=== PATIENT | female | born 1980 | race African-American/Black ===

== ENCOUNTER 2016-10-25 10:08 | Emergency (ER) | payer OTHER ==
[2016-10-25 10:29] VITALS: BP 137/84; PULSE 94; TEMP 98.1; BMI 30.4
[2016-10-25] MEDS ORDERED: IBUPROFEN 400 MG TABLET (FP) PO ONE ×2 (11:28→11:34)
--- NOTE | 2016-10-25 11:56 | PDOC ---
History of Present Illness - General Chief Complaint: Pain Stated Complaint: Right leg pain, chronic Time Seen by Provider: 10/25/16 11:00 History Source: Patient - History of Present Illness Occurred: reports: other Lower Extremity Pain Location: right: ankle Past History - Past Medical History Allergies/Adverse Reactions: Allergies Allergy/AdvReac Type Severity Reaction Status Date / Time No Known Allergies Allergy Verified 10/25/16 10:29 Home Medications: Ambulatory Orders Omeprazole [Prilosec (RX)] 40 mg PO DAILY 02/10/15 Hydroxyzine Pamoate [Vistaril -] 25 mg PO HS #30 capsule 02/23/15 Quetiapine Fumarate [Seroquel -] 25 mg PO HS #30 tablet 02/23/15 Venlafaxine HCl [Effexor -] 50 mg PO DAILY #30 tablet 02/23/15 Antipyrine-Benzocaine Ear Drop [Auralgan -] 1 drop OU TID 12/08/15 Oxycodone HCl/Acetaminophen [Oxycodone-Acetaminophen 5-325] 1 each PO BID PRN Anemia: No Asthma: No Cancer: No Cardiac Disorders: No CVA: No COPD: No CHF: No Dementia: No Diabetes: No GI Disorders: No Disorders: No HTN: No Hypercholesterolemia: No Kidney Stones: No Liver Disease: No Psychiatric Problems: Yes (bipolar) Suicide Attempt (Hx): No Seizures: No Thyroid Disease: No - Surgical History Abdominal Surgery: No Appendectomy: No Cardiac Surgery: No Cholecystectomy: No Lung Surgery: No Neurologic Surgery: No Orthopedic Surgery: Yes (right fibula fx 2012, left ear effusion, treated with antipyrine benzocaine) - Reproductive History PID: No - Immunization History Td Vaccination: (unknown) Immunization Up to Date: Yes - Psycho/Social/Smoking Cessation Hx Anxiety: No Suicidal Ideation: No Smoking Status: Yes Smoking History: Current every day smoker Years of Tobacco Use: 15 Have you smoked in the past 12 months: Yes Number of Cigarettes Smoked Daily: 5 Cigars Per Day: 0 Information on smoking cessation initiated: Yes 'Breaking Loose' booklet given: 10/25/16 Hx Alcohol Use: No Drug/Substance Use Hx: No Substance Use Type: Marijuana Hx Substance Use Treatment: Yes (completed this program in February 2015) Review of Systems - Review of Systems Constitutional: No: Chills, Fever Musculoskeletal: Yes: Joint Pain. No: Joint Swelling *Physical Exam - Vital Signs Last Vital Signs Temp Pulse Resp BP Pulse Ox 98.1 F 94 H 18 137/84 99 10/25/16 10:27 10/25/16 10:27 10/25/16 10:27 10/25/16 10:27 10/25/16 10:27 - Physical Exam General Appearance: Yes: Appropriately Dressed. No: Apparent Distress HEENT: positive: Normal Voice Neck: positive: Supple Respiratory/Chest: negative: Respiratory Distress Extremity: positive: Other (~1cm poorly healing scab to dorsum of L hand, no s/ o infxn) ED Treatment Course - RADIOLOGY Radiology Studies Ordered: Category Date Time Status ANKLE-RIGHT [RAD] Stat Radiology 10/25/16 11:28 Ordered - Medications Given in the ED: ED Medications Discontinued Medications Generic Name Dose Route Start Last Admin Trade Name Freq PRN Reason Stop Dose Admin Ibuprofen 800 mg 10/25/16 11:28 10/25/16 11:36 Motrin - PO 10/25/16 11:29 800 mg ONCE ONE Administration Medical Decision Making - Medical Decision Making 10/25/16 11:42 36 yo F, s/p R ankle surgery 4 years ago at OSH, here w/ pain to site x months. For unclear reasons has not followed up with her orthopedist and has not taken anything for pain. Pt also c/o painful scab to L hand that has been intermittent x months. No f/c Pt well appearing and stable w/ poorly healing scab to dorsum of L hand but no s/o infxn. Surgical scar to lateral malleolus of R ankle, no swelling or skin changes. Pain control in ED and XR of ankle to assess hardware 10/25/16 11:57 10/25/16 12:37 Hardware intact on x-ray with some mild DJD changes. Patient given copy of reports to follow-up with her orthopedic. To take [id number] Motrin as needed for pain 10/25/16 12:39 *DC/Admit/Observation/Transfer Diagnosis at time of Disposition: Ankle pain, right Qualifiers: Chronicity: acute Qualified Code(s): M25.571 - Pain in right ankle and joints of right foot - Discharge Dispostion Disposition: HOME Condition at time of disposition: Good - Patient Instructions Additional Instructions: Take motrin for pain and follow up with your orthopedics Follow-up with your PMD as well
== END 2016-10-25 12:40 | disposition home or self-care (01) ==
LOC: JERFT 10:08
DX: M25.571 Pain in right ankle and joints of right foot (principal); Z87.311 Personal history of (healed) other pathological fracture; Z98.890 Other specified postprocedural states; Z87.81 Personal history of (healed) traumatic fracture
CPT/HCPCS: 73610-TC-RT; 99281-25

== ENCOUNTER 2018-04-23 13:47 | Inpatient (IN) | payer OTHER ==
[2018-04-23 16:50] VITALS: BMI 28.8
--- NOTE | 2018-04-23 20:28 | HP ---
Admission ROS [facility] Chief Complaint: THC and PCP rehabilitation Allergies/Adverse Reactions: Allergies Allergy/AdvReac Type Severity Reaction Status Date / Time No Known Allergies Allergy Verified 10/25/16 10:29 History of Present Illness: 38 yo female with hx of nicotine, PCP, THC dependence is here seeking rehabilitation. Last rehab two years ago at [facility]. PMHX: GERD, Bipolar and Depression. Denies suicidal / homicidal ideation or hx of suicide attempts. Longest period of sobriety 13 months. Exam Limitations: No Limitations - Ebola screening Have you traveled outside of the country in the last 21 days: No Have you had contact with anyone from an Ebola affected area: No Do you have a fever: No - Review of Systems Constitutional: No Symptoms Reported EENT: reports: No Symptoms Reported Respiratory: reports: No Symptoms reported Cardiac: reports: No Symptoms Reported GI: reports: Indigestion : reports: No Symptoms Reported Musculoskeletal: reports: No Symptoms Reported Integumentary: reports: No Symptoms Reported Neuro: reports: No Symptoms reported Endocrine: reports: No Symptoms Reported Hematology: reports: No Symptoms Reported Psychiatric: reports: Orientated x3, Anxious Other Systems: Reviewed and Negative Patient History - Patient Medical History Hx Anemia: No Hx Asthma: No Hx Chronic Obstructive Pulmonary Disease (COPD): No Hx Cancer: No Hx Cardiac Disorders: No Hx Congestive Heart Failure: No Hx Hypertension: No Hx Hypercholesterolemia: No Hx Pacemaker: No HX Cerebrovascular Accident: No Hx Seizures: No Hx Dementia: No Hx Diabetes: No Hx Gastrointestinal Disorders: Yes (GERD ) Hx Liver Disease: No Hx Genitourinary Disorders: No Hx Sexually Transmitted Disorders: No Hx Renal Disease (ESRD): No Hx Thyroid Disease: No Hx Human Immunodeficiency Virus (HIV): No (last tested six montha ago neg results) Hx Hepatitis C: No (2014 negative) Hx Depression: Yes (Bipolar) Hx Suicide Attempt: No Hx Bipolar Disorder: Yes (bipolar depression no meds at this time ) Hx Schizophrenia: No - Patient Surgical History Past Surgical History: Yes Hx Neurologic Surgery: No Hx Cataract Extraction: No Hx Cardiac Surgery: No Hx Lung Surgery: No Hx Breast Surgery: No Hx Breast Biopsy: No Hx Abdominal Surgery: No Hx Appendectomy: No Hx Cholecystectomy: No Hx Genitourinary Surgery: No Hx Section: No Hx Orthopedic Surgery: Yes (right fibula fx 2011, left ear effusion, treated with antipyrine benzocaine) Hx Hysterectomy: No Anesthesia Reaction: No - PPD History Previous Implant?: No Documented Results: Negative w/proof Date: 02/12/15 Results: 0mm PPD to be Administered?: Yes - Reproductive History Patient is a Female of Child Bearing Age (11 -55 yrs old): Yes Last Menstrual Period: 04/22/18 Patient : No - Smoking Cessation Smoking history: Current every day smoker Have you smoked in the past 12 months: Yes Aproximately how many cigarettes per day: 5 Cigars Per Day: 0 Hx Chewing Tobacco Use: No Initiated information on smoking cessation: Yes 'Breaking Loose' booklet given: 04/23/18 - Substance & Tx. History Hx Alcohol Use: No Hx Substance Use: No (PCP ) Substance Use Type: Marijuana Hx Substance Use Treatment: Yes ([facility] two year ago ) - Substances Abused Marijuana/Hashish Route: Smoking Frequency: Daily Amount used: 3-4 blunts Age of first use: 16 Date of Last Use: 04/22/18 PCP Route: Smoking Frequency: Daily Amount used: 3-4 blunts Age of first use: 18 Date of Last Use: 04/22/18 Family Disease History - Family Disease History Family Disease History: Diabetes: Mother, Heart Disease: Grandparent, Other: Father (heroin dependence,) Admission Physical Exam S - Vital Signs Vital Signs: Vital Signs - 24 hr 04/23/18 16:46 Temperature 97.6 F Pulse Rate 87 Respiratory 19 Rate Blood Pressure 137/85 - Physical General Appearance: Yes: Nourished, Appropriately Dressed, Obese, Anxious HEENTM: Yes: EOMI, Hearing grossly Normal, Normal ENT Inspection, Normocephalic , Normal Voice, ROSALEE, Pharynx Normal Respiratory: Yes: Within Normal Limits Neck: Yes: Within Normal Limits Cardiology: Yes: Regular Rhythm, Regular Rate Abdominal: Yes: Normal Bowel Sounds, Non Tender, Soft, Protuberent Genitourinary: Yes: Within Normal Limits Back: Yes: Normal Inspection Musculoskeletal: Yes: full range of Motion, Gait Steady, Pelvis Stable Extremities: Yes: Normal Capillary Refill, Normal Inspection, Normal Range of Motion, Non-Tender Neurological: Yes: paper plate machine tender II-XII NML intact, Fully Oriented, Alert, Motor Strength 5/5, Depressed Affect Integumentary: Yes: Normal Color, Dry, Warm Lymphatic: Yes: Within Normal Limits - Diagnostic (1) Psychiatric disorder Current Visit: Yes Status: Suspected (2) GERD (gastroesophageal reflux disease) Current Visit: No Status: Chronic Qualifiers: Esophagitis presence: without esophagitis Qualified Code(s): K21.9 - Gastro -esophageal reflux disease without esophagitis (3) Nicotine dependence Current Visit: Yes Status: Chronic Qualifiers: Nicotine product type: cigarettes (4) PCP dependence Current Visit: Yes Status: Chronic BHS Breath Alcohol Content Breath Alcohol Content: 0 Urine Pregancy Test - Result Urine Test Results: Negative- NO Line Present Urine Drug Screen - Results Drug Screen Negative: No Urine Drug Screen Results: THC-Marijuana Inpatient Rehab Admission - Initial Determination Are CD services needed?: Yes Free of communicable disease: Yes Not in need of hospitalization: Yes - Rehab Admission Criteria Previous failed treatment: Yes Poor recovery environment: Yes Comorbidities: Yes Lacks judgement: Yes Patient is meeting Inpatient Rehab admission criteria:: Yes
[2018-04-23] MEDS ORDERED: ACETAMINOPHEN 325 MG TABLET (FP) PO PRN (20:30)
[2018-04-23] MEDS ORDERED: MAG HYDROX/AL HYDROX/SIMETH 30 ML UNIT-DOSE CUP PO PRN (20:30)
[2018-04-23] MEDS ORDERED: MENTHOL/PHENOL 1 EACH UD MM PRN (20:30)
[2018-04-23] MEDS ORDERED: guaiFENesin/D-METHORPHAN HB 10 ML UNIT-DOSE CUPS PO PRN (20:30)
[2018-04-23] MEDS ORDERED: P-EPHED 60MG/TRIPROLIDI 2.5MG TABLET PO PRN (20:30)
[2018-04-23] MEDS ORDERED: LOPERAMIDE HCL 2 MG CAPSULE PO PRN (20:30)
[2018-04-23] MEDS ORDERED: MAGNESIUM HYDROX 2400MG/30ML ORAL SUSPENSION 30 ML CUP PO PRN (20:30)
[2018-04-23] MEDS ORDERED: IBUPROFEN 400 MG TABLET (FP) PO PRN (20:30)
[2018-04-23] MEDS ORDERED: hydrOXYzine PAMOATE 50 MG CAPSULE (FP) PO PRN (20:30)
[2018-04-23] MEDS ORDERED: MAGNESIUM CITRATE 300 ML BOTTLE PO PRN (20:30)
[2018-04-23] MEDS ORDERED: TUBERCULIN PPD 5 TU/0.1ML VIAL ID ONE (21:57)
[2018-04-23] MEDS ORDERED: MELATONIN 5 MG TABLETS PO PRN (22:00)
[2018-04-23] MEDS: PANTOPRAZOLE 20 MG TABLET (FP) PO SCH (22:39)
[2018-04-23] MEDS: diphenhydrAMINE HCL 50 MG CAPSULE PO SCH (22:39)
[2018-04-23] MEDS: THIAMINE HCL 100 MG TABLET (FP) PO SCH (22:50)
[2018-04-24 00:09] LABS: URINE APPEARANCE SLCLOUDY; URINE BILIRUBIN NEGATIVE (<2.0 mg/dL); URINE COLOR YELLOW; URINE GLUCOSE (UA) NEGATIVE (NEGATIVE); URINE KETONE TRACE (NEGATIVE); URINE LEUK ESTERASE NEGATIVE (NEGATIVE); URINE NITRITE NEGATIVE (NEGATIVE); URINE UROBILINOGEN NEGATIVE mg/dL (0.2-1.0)
[2018-04-24 00:30] LABS: URINE PROTEIN 2+ (NEGATIVE)
[2018-04-24 00:58] LABS: EPI CELLS FEW /HPF (FEW); URINE BACTERIA RARE /hpf (NONE SEEN); URINE HYALINE CAST 3 /lpf; URINE MUCUS FEW
[2018-04-24] MEDS: PRENATAL VITAMINS W/ FOLIC ACID TABLET (FP) PO SCH (09:00)
[2018-04-24] MEDS: PANTOPRAZOLE 20 MG TABLET (FP) PO SCH ×2 (09:00→21:25)
[2018-04-24 14:52] LABS: HEMATOCRIT 32.3 % (32.4-45.2); HEMOGLOBIN 10.9 GM/dL (10.7-15.3); MCHC 33.6 g/dl (32.0-36.0); MEAN CELL VOLUME 83.2 fl (80-96); MEAN PLT VOLUME 8.9 fl (7.5-11.1); PLATELET COUNT 317 K/MM3 (134-434); RBC 3.88 M/mm3 (3.60-5.2); RDW 15.8 % (11.6-15.6)
[2018-04-24 15:07] LABS: CHLORIDE 106 mmol/L (98-107); POTASSIUM 3.6 mmol/L (3.5-5.1); SODIUM 143 mmol/L (136-145)
[2018-04-24 15:34] LABS: ALBUMIN 3.4 g/dl (3.4-5.0); ALK PHOS 56 U/L (45-117); ANION GAP 11 MMOL/L (8-16); BILIRUBIN,TOTAL 0.4 mg/dL (0.2-1.0); BLOOD UREA NITROGEN 12 mg/dL (7-18); CALCIUM 8.7 mg/dL (8.5-10.1); CO2 26 mmol/L (21-32); CREATININE 0.7 mg/dL (0.55-1.3); GLUCOSE,RANDOM 96 mg/dL (74-106); SGOT/AST 10 U/L (15-37); SGPT/ALT 12 U/L (13-61); TOT PROT 6.6 g/dl (6.4-8.2)
--- NOTE | 2018-04-24 15:41 | EKG ---
Test Reason : Blood Pressure : / mmHG Vent. Rate : 055 BPM Atrial Rate : 055 BPM P-R Int : 156 ms QRS Dur : 096 ms QT Int : 460 ms P-R-T Axes : 040 034 004 degrees QTc Int : 440 ms SINUS BRADYCARDIA OTHERWISE NORMAL ECG NO PREVIOUS ECGS AVAILABLE Confirmed by JAZMIN MOSELEY MD ([id number]) on 04/24/2018 3:41:12 PM Referred By: Confirmed By:JAZMIN MOSELEY MD
[2018-04-24] MEDS ORDERED: PT OWN MED DRAWER 7, Y5N ONE (21:14)
[2018-04-24] MEDS: THIAMINE HCL 100 MG TABLET (FP) PO SCH (21:25)
[2018-04-24] MEDS: diphenhydrAMINE HCL 50 MG CAPSULE PO SCH (21:25)
[2018-04-25 06:42] VITALS: BP 125/80; PULSE 81; TEMP 98.1
--- NOTE | 2018-04-25 09:13 | HP ---
Psychiatrist Admission - Data Date of interview: 04/25/18 Admission source: [facility] Identifying data: This is the third admission to [address] [place] [address] rehabilitation for this 38 years old AA single homosexual female ,residing in residential,supported by PA. Medical History: H/O Anemia,GERD,H/o Fibula fracture. Psychiatric History: patient reports first contact with psychiatrist a few years ago while being in outpatient Drug rehabilitation treatment in [facility].patient addressed depression,mood instability,anxiety ,drug use.Shew was dx with Bipolar disorder and placed on Seroquel 100 mg po hs with good response. Patient was also dx with Pesronality disorder.She reports poor compliance with treatment,not on psychotropic medications,no current OPD care. patient is not willing to start medications at thei time. Physical/Sexual Abuse/Trauma History: not willing to discuss Vital Signs: Vital Signs - 24 hr 04/25/18 04/25/18 04/25/18 00:30 03:30 06:41 Temperature 98.1 F Pulse Rate 81 Respiratory 18 18 18 Rate Blood Pressure 125/80 Allergies/Adverse Reactions: Allergies Allergy/AdvReac Type Severity Reaction Status Date / Time No Known Allergies Allergy Verified 10/25/16 10:29 Concur with the findings of this exam: Yes - Substance Abuse/Tx History Hx Alcohol Use: No Hx Substance Use: Yes (marijuana since 15 yo,4 blunts daily,PCP since 16 yo,4 lunts daily) Substance Use Type: Marijuana Hx Substance Use Treatment: Yes (left this program AMA last year) Mental Status Exam - Mental Status Exam Alert and Oriented to: Time, Place, Person Cognitive Function: Grossly Intact Patient Appearance: Unkempt Mood: Hostile, Irritable Affect: Mood Congruent, Labile Patient Behavior: Restless, Impulsive, Resitive to Care Speech Pattern: Clear Voice Loudness: Normal Thought Process: Goal Oriented Thought Disorder: Not Present Hallucinations: Denies Suicidal Ideation: Denies Homicidal Ideation: Denies Insight/Judgement: Poor Sleep: Fair Appetite: Good Muscle strength/Tone: Normal Gait/Station: Normal Psychiatric Findings - Problem List ([place] 1, 2,3) (1) Nicotine dependence Current Visit: Yes Status: Chronic Qualifiers: Nicotine product type: cigarettes (2) PCP dependence Current Visit: Yes Status: Chronic (3) Bipolar II disorder in partial or unspecified remission Current Visit: Yes Status: Chronic (4) Cannabis dependence Current Visit: Yes Status: Chronic (5) Cluster B personality disorder Current Visit: Yes Status: Chronic - Initial Treatment Plan Initial Treatment Plan: patient is not willing to stay in treatment,no motivations,hostile,suspicious,refusing to give any specific reasoning why she decided to sign out.
[2018-04-25] MEDS: PRENATAL VITAMINS W/ FOLIC ACID TABLET (FP) PO SCH (10:44)
[2018-04-25] MEDS: PANTOPRAZOLE 20 MG TABLET (FP) PO SCH (10:44)
== END 2018-04-25 13:18 | disposition left against medical advice (07) | DRG 770 ==
LOC: YASAS 13:47 → Y3E 16:45
PROVIDERS: ADMIT Psychiatry & Neurology Psychiatry; ATTEND Psychiatry & Neurology Psychiatry
PROC: HZ42ZZZ Group Counseling for Substance Abuse Treatment, Cognitive-Behavioral (ICD-10-PCS; principal; 2018-04-23)
DX: F12.20 Cannabis dependence, uncomplicated (principal); F16.20 Hallucinogen dependence, uncomplicated; F17.210 Nicotine dependence, cigarettes, uncomplicated; F31.81 Bipolar II disorder; F60.9 Personality disorder, unspecified; K21.9 Gastro-esophageal reflux disease without esophagitis
CPT/HCPCS: 36415; 80053; 81003; 81015; 85027; 86593; 93005; 93010

== ENCOUNTER 2018-11-11 10:01 | Emergency (ER) | payer OTHER ==
[2018-11-11 10:14] VITALS: BP 139/79; PULSE 90; TEMP 97.9; BMI 63.6
== END 2018-11-11 11:01 | disposition left against medical advice (07) ==
LOC: JER 10:01
DX: Z53.21 Procedure and treatment not carried out due to patient leaving prior to being seen by health care provider (principal)
CPT/HCPCS: 99281-25

== ENCOUNTER 2019-06-01 10:20 | Inpatient (IN) | payer OTHER ==
[2019-06-01 10:36] VITALS: BMI 29.6
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
[2019-06-01] MEDS ORDERED: MENTHOL/PHENOL 1 EACH UD MM PRN (11:40)
[2019-06-01] MEDS ORDERED: IBUPROFEN 400 MG TABLET (FP) PO PRN (11:40)
[2019-06-01] MEDS ORDERED: LOPERAMIDE HCL 2 MG CAPSULE PO PRN (11:40)
[2019-06-01] MEDS ORDERED: MAGNESIUM CITRATE 300 ML BOTTLE PO PRN (11:40)
[2019-06-01] MEDS ORDERED: ACETAMINOPHEN 325 MG TABLET (FP) PO PRN (11:40)
[2019-06-01] MEDS ORDERED: guaiFENesin 200 MG/10 ML 10 ML UNIT-DOSE CUPS PO PRN (11:40)
[2019-06-01] MEDS ORDERED: MAG HYDROX/AL HYDROX/SIMETH 30 ML UNIT-DOSE CUP PO PRN (11:40)
[2019-06-01] MEDS ORDERED: MAGNESIUM HYDROX 2400MG/30ML ORAL SUSPENSION 30 ML CUP PO PRN (11:40)
[2019-06-01] MEDS ORDERED: P-EPHED 60MG/TRIPROLIDI 2.5MG TABLET PO PRN (11:40)
[2019-06-01 14:04] LABS: HEMATOCRIT 34.8 % (32.4-45.2); HEMOGLOBIN 11.4 GM/dL (10.7-15.3); MCH 27.9 pg (25.7-33.7); MCHC 32.8 g/dl (32.0-36.0); MEAN CELL VOLUME 84.9 fl (80-96); MEAN PLT VOLUME 8.7 fl (7.5-11.1); PLATELET COUNT 346 K/MM3 (134-434); RBC 4.09 M/mm3 (3.60-5.2); RDW 13.7 % (11.6-15.6); WHITE BLOOD COUNT 3.2 K/mm3 (4.0-10.0)
[2019-06-01 14:15] LABS: ALBUMIN 4.2 g/dl (3.4-5.0); BILIRUBIN,TOTAL 0.9 mg/dL (0.2-1); BLOOD UREA NITROGEN 11.7 mg/dL (7-18); CALCIUM 8.7 mg/dL (8.5-10.1); CREATININE 0.9 mg/dL (0.55-1.3); POTASSIUM 3.5 mmol/L (3.5-5.1); TOT PROT 8.1 g/dl (6.4-8.2)
[2019-06-01] MEDS: THIAMINE HCL 100 MG TABLET (FP) PO SCH (21:32)
[2019-06-02] MEDS: PRENATAL VITAMINS W/ FOLIC ACID TABLET (FP) PO SCH (10:28)
[2019-06-02 12:14] LABS: URINE APPEARANCE CLEAR; URINE BILIRUBIN NEGATIVE (NEGATIVE); URINE COLOR YELLOW; URINE GLUCOSE (UA) NEGATIVE (NEGATIVE); URINE KETONE NEGATIVE (NEGATIVE); URINE LEUK ESTERASE NEGATIVE (NEGATIVE); URINE NITRITE NEGATIVE (NEGATIVE); URINE PROTEIN NEGATIVE (NEGATIVE); URINE UROBILINOGEN 0.2 mg/dL (0.2-1.0)
[2019-06-02] MEDS: THIAMINE HCL 100 MG TABLET (FP) PO SCH (22:50)
[2019-06-03] MEDS: PRENATAL VITAMINS W/ FOLIC ACID TABLET (FP) PO SCH (10:25)
[2019-06-03] MEDS: THIAMINE HCL 100 MG TABLET (FP) PO SCH (21:54)
[2019-06-04] MEDS: PRENATAL VITAMINS W/ FOLIC ACID TABLET (FP) PO SCH (10:51)
[2019-06-04] MEDS: THIAMINE HCL 100 MG TABLET (FP) PO SCH (22:10)
[2019-06-05] MEDS: PRENATAL VITAMINS W/ FOLIC ACID TABLET (FP) PO SCH (10:09)
[2019-06-05] MEDS ORDERED: COLLOIDAL OATMEAL 1 BAR EACH TP PRN (15:19)
[2019-06-05] MEDS: THIAMINE HCL 100 MG TABLET (FP) PO SCH (22:47)
[2019-06-06] MEDS: PRENATAL VITAMINS W/ FOLIC ACID TABLET (FP) PO SCH (10:45)
[2019-06-06] MEDS: THIAMINE HCL 100 MG TABLET (FP) PO SCH (21:29)
[2019-06-07] MEDS: PRENATAL VITAMINS W/ FOLIC ACID TABLET (FP) PO SCH (10:26)
[2019-06-07] MEDS: THIAMINE HCL 100 MG TABLET (FP) PO SCH (22:13)
[2019-06-08] MEDS: PRENATAL VITAMINS W/ FOLIC ACID TABLET (FP) PO SCH (10:29)
[2019-06-08] MEDS: PANTOPRAZOLE 20 MG TABLET (FP) PO SCH (12:50)
[2019-06-08] MEDS: THIAMINE HCL 100 MG TABLET (FP) PO SCH (21:42)
[2019-06-09] MEDS: PRENATAL VITAMINS W/ FOLIC ACID TABLET (FP) PO SCH (09:56)
[2019-06-09] MEDS: PANTOPRAZOLE 20 MG TABLET (FP) PO SCH (09:56)
[2019-06-09] MEDS: THIAMINE HCL 100 MG TABLET (FP) PO SCH (22:03)
[2019-06-10] MEDS: PRENATAL VITAMINS W/ FOLIC ACID TABLET (FP) PO SCH (10:22)
[2019-06-10] MEDS: PANTOPRAZOLE 20 MG TABLET (FP) PO SCH (10:22)
[2019-06-10] MEDS: THIAMINE HCL 100 MG TABLET (FP) PO SCH (22:16)
[2019-06-10] MEDS ORDERED: PT OWN MED DRAWER 7, Y5N ONE (22:19)
[2019-06-10] MEDS: SODIUM CHLORIDE NASAL SPRAY 44 ML BOTTLE NS PRN (22:19)
[2019-06-10] MEDS: diphenhydrAMINE HCL 25 MG CAPSULE (FP) PO PRN (22:19)
[2019-06-10] MEDS: MELATONIN 5 MG TABLETS PO PRN (22:21)
[2019-06-11] MEDS ORDERED: PANTOPRAZOLE 20 MG TABLET (FP) PO SCH (06:00)
[2019-06-11] MEDS: SODIUM CHLORIDE NASAL SPRAY 44 ML BOTTLE NS PRN (10:37)
[2019-06-11] MEDS: PRENATAL VITAMINS W/ FOLIC ACID TABLET (FP) PO SCH (10:38)
[2019-06-11] MEDS: diphenhydrAMINE HCL 25 MG CAPSULE (FP) PO PRN ×2 (10:39→21:01)
--- NOTE | 2019-06-11 13:47 | PN ---
BHS Progress Note (SOAP) Subjective: patient c/o frequent urination; denies DM2, or s/s of urinary tract infection. Objective: General: no apparent distress Lungs: clear Heart: s1 s2 genitourinary: frequent urination, light in color, no odor 06/11/19 14:18 06/11/19 14:19 Urine Test Results Urine Color Yellow 06/02/19 09:45 Urine Appearance Clear 06/02/19 09:45 Urine pH 6.0 (5.0-8.0) 06/02/19 09:45 Ur Specific Sophia 1.024 (1.010-1.035) 06/02/19 09:45 Urine Protein Negative (NEGATIVE) 06/02/19 09:45 Urine Glucose (UA) Negative (NEGATIVE) 06/02/19 09:45 Urine Ketones Negative (NEGATIVE) 06/02/19 09:45 Urine Blood Negative (NEGATIVE) 06/02/19 09:45 Urine Nitrite Negative (NEGATIVE) 06/02/19 09:45 Urine Bilirubin Negative (NEGATIVE) 06/02/19 09:45 Ur Leukocyte Esterase Negative (NEGATIVE) 06/02/19 09:45 Vital Signs Period Temp Pulse Resp BP Sys/Hernandez Pulse Ox Last 24 Hr 98.4 F 73 18-18 108/69 Assessment: Urinary frequency 06/11/19 14:19 Plan: Will repeat U/A
[2019-06-11] MEDS: FLUTICASONE PROP 0.05% 16 GM NASAL SPRAY NS SCH ×2 (15:50→21:00)
[2019-06-11] MEDS ORDERED: PT OWN MED DRAWER 7, Y5N ONE (18:40)
[2019-06-11] MEDS: PANTOPRAZOLE 20 MG TABLET (FP) PO SCH (21:00)
[2019-06-11] MEDS: THIAMINE HCL 100 MG TABLET (FP) PO SCH (21:00)
[2019-06-11] MEDS: MELATONIN 5 MG TABLETS PO PRN (21:01)
[2019-06-11 23:18] LABS: URINE APPEARANCE CLEAR; URINE BILIRUBIN NEGATIVE (NEGATIVE); URINE COLOR YELLOW; URINE GLUCOSE (UA) NEGATIVE (NEGATIVE); URINE KETONE NEGATIVE (NEGATIVE); URINE LEUK ESTERASE NEGATIVE (NEGATIVE); URINE NITRITE NEGATIVE (NEGATIVE); URINE PROTEIN NEGATIVE (NEGATIVE); URINE UROBILINOGEN 0.2 mg/dL (0.2-1.0)
[2019-06-12] MEDS: PANTOPRAZOLE 20 MG TABLET (FP) PO SCH ×2 (06:17→22:14)
[2019-06-12] MEDS ORDERED: PT OWN MED DRAWER 7, Y5N ONE ×2 (06:18→08:58)
[2019-06-12] MEDS: diphenhydrAMINE HCL 25 MG CAPSULE (FP) PO PRN ×2 (06:19→22:14)
[2019-06-12] MEDS: FLUTICASONE PROP 0.05% 16 GM NASAL SPRAY NS SCH (10:36)
[2019-06-12] MEDS: PRENATAL VITAMINS W/ FOLIC ACID TABLET (FP) PO SCH (10:37)
[2019-06-12] MEDS: MELATONIN 5 MG TABLETS PO PRN (22:14)
[2019-06-13] MEDS: FLUTICASONE PROP 0.05% 16 GM NASAL SPRAY NS SCH ×3 (00:27→21:29)
[2019-06-13] MEDS: THIAMINE HCL 100 MG TABLET (FP) PO SCH ×2 (00:27→21:27)
[2019-06-13] MEDS: PANTOPRAZOLE 20 MG TABLET (FP) PO SCH ×2 (06:11→21:27)
[2019-06-13] MEDS: PRENATAL VITAMINS W/ FOLIC ACID TABLET (FP) PO SCH (09:45)
[2019-06-13] MEDS: diphenhydrAMINE HCL 25 MG CAPSULE (FP) PO PRN ×2 (09:45→21:29)
[2019-06-13] MEDS: MELATONIN 5 MG TABLETS PO PRN (21:27)
[2019-06-13] MEDS ORDERED: PT OWN MED DRAWER 7, Y5N ONE (21:30)
[2019-06-14] MEDS: PANTOPRAZOLE 20 MG TABLET (FP) PO SCH ×2 (05:52→21:28)
[2019-06-14 07:03] VITALS: PULSE 71
[2019-06-14] MEDS: PRENATAL VITAMINS W/ FOLIC ACID TABLET (FP) PO SCH (09:40)
[2019-06-14] MEDS: FLUTICASONE PROP 0.05% 16 GM NASAL SPRAY NS SCH ×2 (09:40→21:29)
[2019-06-14] MEDS: diphenhydrAMINE HCL 25 MG CAPSULE (FP) PO PRN (21:28)
[2019-06-14] MEDS: THIAMINE HCL 100 MG TABLET (FP) PO SCH (21:29)
[2019-06-14] MEDS: MELATONIN 5 MG TABLETS PO PRN (21:29)
[2019-06-15] MEDS: PANTOPRAZOLE 20 MG TABLET (FP) PO SCH (06:13)
[2019-06-15 07:20] VITALS: BP 115/71; TEMP 98.8
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
== END 2019-06-15 08:56 | disposition home or self-care (01) | DRG 772 ==
LOC: YASAS 10:20 → Y3E 12:08
PROVIDERS: ADMIT Neuromusculoskeletal Medicine & OMM; ATTEND Neuromusculoskeletal Medicine & OMM
PROC: HZ42ZZZ Group Counseling for Substance Abuse Treatment, Cognitive-Behavioral (ICD-10-PCS; principal; 2019-06-01)
DX: F16.20 Hallucinogen dependence, uncomplicated (principal); F12.20 Cannabis dependence, uncomplicated; F17.210 Nicotine dependence, cigarettes, uncomplicated; K21.9 Gastro-esophageal reflux disease without esophagitis; R35.0 Frequency of micturition
CPT/HCPCS: 36415; 80053; 81003; 81025; 85027; 86593

== ENCOUNTER 2020-11-30 09:38 | Inpatient (IN) | payer OTHER ==
[2020-11-30 16:06] VITALS: BMI 31.6
[2020-11-30] MEDS ORDERED: MAGNESIUM CITRATE 300 ML BOTTLE PO PRN (16:36)
[2020-11-30] MEDS ORDERED: guaiFENesin 200 MG/10 ML 10 ML UNIT-DOSE CUPS PO PRN (16:36)
[2020-11-30] MEDS ORDERED: MAGNESIUM HYDROX 2400MG/30ML ORAL SUSPENSION 30 ML CUP PO PRN (16:36)
[2020-11-30] MEDS ORDERED: P-EPHED 60MG/TRIPROLIDI 2.5MG TABLET PO PRN (16:36)
[2020-11-30] MEDS ORDERED: hydrOXYzine PAMOATE 25 MG CAPSULE (FP) PO PRN (16:36)
[2020-11-30] MEDS ORDERED: LOPERAMIDE HCL 2 MG CAPSULE PO PRN (16:36)
[2020-11-30] MEDS ORDERED: diphenhydrAMINE HCL 25 MG CAPSULE (FP) PO PRN (16:38)
[2020-11-30] MEDS: THIAMINE HCL 100 MG TABLET (FP) PO SCH (21:23)
[2020-11-30] MEDS: MELATONIN 5 MG TABLETS PO SCH (21:24)
[2020-12-01 11:03] LABS: HEMOGLOBIN 11.9 GM/dL (10.7-15.3); MCH 29.2 pg (25.7-33.7); MEAN CELL VOLUME 88.3 fl (80-96); MEAN PLT VOLUME 8.7 fl (7.5-11.1); PLATELET COUNT 294 K/MM3 (134-434); RBC 4.07 M/mm3 (3.60-5.2); RDW 17.4 % (11.6-15.6); WHITE BLOOD COUNT 5.7 K/mm3 (4.0-10.0)
[2020-12-01] MEDS: PRENATAL VITAMINS W/ FOLIC ACID TABLET (FP) PO SCH (11:06)
[2020-12-01 11:10] LABS: ALBUMIN 3.6 g/dl (3.4-5.0)
[2020-12-01 11:11] LABS: BLOOD UREA NITROGEN 13.2 mg/dL (7-18); CALCIUM 9.2 mg/dL (8.5-10.1)
[2020-12-01 11:14] LABS: CREATININE 0.9 mg/dL (0.55-1.3)
[2020-12-01 11:15] LABS: BILIRUBIN,TOTAL 0.5 mg/dL (0.2-1)
[2020-12-01 11:16] LABS: TOT PROT 7.1 g/dl (6.4-8.2)
[2020-12-01] MEDS: MELATONIN 5 MG TABLETS PO SCH (21:56)
[2020-12-01] MEDS: THIAMINE HCL 100 MG TABLET (FP) PO SCH (21:56)
[2020-12-02] MEDS: PRENATAL VITAMINS W/ FOLIC ACID TABLET (FP) PO SCH (10:59)
[2020-12-02] MEDS: MELATONIN 5 MG TABLETS PO SCH (21:49)
[2020-12-02] MEDS: THIAMINE HCL 100 MG TABLET (FP) PO SCH (21:50)
[2020-12-03] MEDS: IBUPROFEN 400 MG TABLET (FP) PO PRN ×3 (01:33→22:26)
[2020-12-03] MEDS ORDERED: MASKS NR ONE (06:16)
[2020-12-03] MEDS: PRENATAL VITAMINS W/ FOLIC ACID TABLET (FP) PO SCH (09:58)
[2020-12-03] MEDS: THIAMINE HCL 100 MG TABLET (FP) PO SCH (21:35)
[2020-12-03] MEDS: MELATONIN 5 MG TABLETS PO SCH (21:35)
[2020-12-04] MEDS: PRENATAL VITAMINS W/ FOLIC ACID TABLET (FP) PO SCH (10:01)
[2020-12-04 14:07] LABS: SARS-CoV-2 NAA Not Detected (Not Detected)
[2020-12-04 18:05] LABS: PH,URINE 6.5 (5.0-8.0); URINE APPEARANCE CLEAR; URINE BILIRUBIN NEGATIVE (NEGATIVE); URINE COLOR YELLOW; URINE GLUCOSE (UA) NEGATIVE (NEGATIVE); URINE KETONE NEGATIVE (NEGATIVE); URINE LEUK ESTERASE NEGATIVE (NEGATIVE); URINE NITRITE NEGATIVE (NEGATIVE); URINE PROTEIN NEGATIVE (NEGATIVE); URINE UROBILINOGEN 0.2 mg/dL (0.2-1.0)
[2020-12-04] MEDS: THIAMINE HCL 100 MG TABLET (FP) PO SCH (21:28)
[2020-12-04] MEDS: MELATONIN 5 MG TABLETS PO SCH (21:28)
[2020-12-04] MEDS: IBUPROFEN 400 MG TABLET (FP) PO PRN (23:45)
[2020-12-05] MEDS: PRENATAL VITAMINS W/ FOLIC ACID TABLET (FP) PO SCH (10:07)
[2020-12-05] MEDS: IBUPROFEN 400 MG TABLET (FP) PO PRN ×2 (10:08→21:33)
[2020-12-05] MEDS: MELATONIN 5 MG TABLETS PO SCH (21:31)
[2020-12-05] MEDS: THIAMINE HCL 100 MG TABLET (FP) PO SCH (21:31)
[2020-12-06] MEDS: PRENATAL VITAMINS W/ FOLIC ACID TABLET (FP) PO SCH (10:24)
[2020-12-06] MEDS ORDERED: LIDOCAINE 5% TOPICAL PATCH TP ONE (12:13)
[2020-12-06] MEDS: CLOTRIMAZOLE 1% CREAM 15 GM TUBE TP SCH (21:27)
[2020-12-06] MEDS: MELATONIN 5 MG TABLETS PO SCH (21:27)
[2020-12-06] MEDS: THIAMINE HCL 100 MG TABLET (FP) PO SCH (21:28)
[2020-12-06] MEDS: FAMOTIDINE 20 MG TABLET PO SCH (21:29)
[2020-12-06] MEDS: IBUPROFEN 400 MG TABLET (FP) PO PRN (21:30)
[2020-12-06] MEDS ORDERED: LIDOCAINE PATCH REMOVAL MC SCH (22:00)
[2020-12-06] MEDS: LIDOCAINE PATCH REMOVAL MC SCH (23:17)
[2020-12-07] MEDS ORDERED: MASKS NR ONE (08:22)
[2020-12-07] MEDS: PRENATAL VITAMINS W/ FOLIC ACID TABLET (FP) PO SCH (09:38)
[2020-12-07] MEDS: IBUPROFEN 400 MG TABLET (FP) PO PRN (09:40)
[2020-12-07] MEDS: FAMOTIDINE 20 MG TABLET PO SCH ×2 (09:40→21:27)
[2020-12-07] MEDS: CLOTRIMAZOLE 1% CREAM 15 GM TUBE TP SCH ×2 (09:42→21:27)
[2020-12-07] MEDS: LIDOCAINE 5% TOPICAL PATCH TP SCH (09:42)
[2020-12-07] MEDS: THIAMINE HCL 100 MG TABLET (FP) PO SCH (21:27)
[2020-12-07] MEDS ORDERED: PT OWN MED DRAWER 7, Y5N ONE (21:27)
[2020-12-07] MEDS: MELATONIN 5 MG TABLETS PO SCH (21:28)
[2020-12-07] MEDS: LIDOCAINE PATCH REMOVAL MC SCH (21:29)
[2020-12-08] MEDS: FAMOTIDINE 20 MG TABLET PO SCH ×2 (10:13→21:40)
[2020-12-08] MEDS: PRENATAL VITAMINS W/ FOLIC ACID TABLET (FP) PO SCH (10:13)
[2020-12-08] MEDS: LIDOCAINE 5% TOPICAL PATCH TP SCH (10:13)
[2020-12-08] MEDS: ACETAMINOPHEN 325 MG TABLET (FP) PO PRN ×2 (10:14→21:41)
[2020-12-08] MEDS: CLOTRIMAZOLE 1% CREAM 15 GM TUBE TP SCH ×2 (10:16→21:43)
[2020-12-08] MEDS: MELATONIN 5 MG TABLETS PO SCH (21:40)
[2020-12-08] MEDS: THIAMINE HCL 100 MG TABLET (FP) PO SCH (21:40)
[2020-12-08] MEDS ORDERED: PT OWN MED DRAWER 7, Y5N ONE (21:43)
[2020-12-08] MEDS: LIDOCAINE PATCH REMOVAL MC SCH (22:09)
[2020-12-09] MEDS: PRENATAL VITAMINS W/ FOLIC ACID TABLET (FP) PO SCH (10:09)
[2020-12-09] MEDS: LIDOCAINE 5% TOPICAL PATCH TP SCH (10:10)
[2020-12-09] MEDS: CLOTRIMAZOLE 1% CREAM 15 GM TUBE TP SCH ×2 (10:11→21:44)
[2020-12-09] MEDS: FAMOTIDINE 20 MG TABLET PO SCH (10:11)
[2020-12-09] MEDS: diphenhydrAMINE HCL 25 MG CAPSULE (FP) PO PRN ×2 (10:12→21:44)
[2020-12-09] MEDS ORDERED: ALBUTEROL SO4 HFA INHALER IH PRN (16:58)
[2020-12-09] MEDS ORDERED: PT OWN MED DRAWER 7, Y5N ONE (21:42)
[2020-12-09] MEDS: THIAMINE HCL 100 MG TABLET (FP) PO SCH (21:43)
[2020-12-09] MEDS: MAG HYDROX/AL HYDROX/SIMETH 30 ML UNIT-DOSE CUP PO PRN (21:44)
[2020-12-09] MEDS: BUDESONIDE/FORMETEROL FUMARATE 80/4.5 mcg INHALER IH SCH (21:44)
[2020-12-09] MEDS: MELATONIN 5 MG TABLETS PO SCH (21:45)
[2020-12-09] MEDS: LIDOCAINE PATCH REMOVAL MC SCH (21:47)
[2020-12-09] MEDS ORDERED: FAMOTIDINE 20 MG TABLET PO SCH (22:00)
[2020-12-10] MEDS: FAMOTIDINE 20 MG TABLET PO SCH ×2 (06:23→16:51)
[2020-12-10] MEDS: BUDESONIDE/FORMETEROL FUMARATE 80/4.5 mcg INHALER IH SCH ×2 (10:29→21:26)
[2020-12-10] MEDS: PRENATAL VITAMINS W/ FOLIC ACID TABLET (FP) PO SCH (10:29)
[2020-12-10] MEDS: LIDOCAINE 5% TOPICAL PATCH TP SCH (10:29)
[2020-12-10] MEDS: CLOTRIMAZOLE 1% CREAM 15 GM TUBE TP SCH ×2 (10:30→21:26)
[2020-12-10] MEDS: diphenhydrAMINE HCL 25 MG CAPSULE (FP) PO PRN (10:32)
[2020-12-10] MEDS ORDERED: MASKS NR ONE (16:04)
[2020-12-10] MEDS: MAG HYDROX/AL HYDROX/SIMETH 30 ML UNIT-DOSE CUP PO PRN (20:11)
[2020-12-10] MEDS: THIAMINE HCL 100 MG TABLET (FP) PO SCH (21:25)
[2020-12-10] MEDS: MELATONIN 5 MG TABLETS PO SCH (21:25)
[2020-12-10] MEDS: LIDOCAINE PATCH REMOVAL MC SCH (21:26)
[2020-12-10] MEDS: ACETAMINOPHEN 325 MG TABLET (FP) PO PRN (21:28)
[2020-12-11] MEDS: FAMOTIDINE 20 MG TABLET PO SCH ×2 (06:07→16:11)
[2020-12-11] MEDS: LIDOCAINE 5% TOPICAL PATCH TP SCH (10:39)
[2020-12-11] MEDS: PRENATAL VITAMINS W/ FOLIC ACID TABLET (FP) PO SCH (10:39)
[2020-12-11] MEDS: CLOTRIMAZOLE 1% CREAM 15 GM TUBE TP SCH ×2 (10:39→21:30)
[2020-12-11] MEDS: BUDESONIDE/FORMETEROL FUMARATE 80/4.5 mcg INHALER IH SCH ×2 (10:40→21:33)
[2020-12-11] MEDS: diphenhydrAMINE HCL 25 MG CAPSULE (FP) PO PRN ×2 (10:40→19:05)
[2020-12-11] MEDS: MAG HYDROX/AL HYDROX/SIMETH 30 ML UNIT-DOSE CUP PO PRN (14:22)
[2020-12-11] MEDS: THIAMINE HCL 100 MG TABLET (FP) PO SCH (21:30)
[2020-12-11] MEDS: LIDOCAINE PATCH REMOVAL MC SCH (21:30)
[2020-12-11] MEDS: MELATONIN 5 MG TABLETS PO SCH (21:30)
[2020-12-11] MEDS: ACETAMINOPHEN 325 MG TABLET (FP) PO PRN (21:32)
[2020-12-12] MEDS: FAMOTIDINE 20 MG TABLET PO SCH ×2 (06:21→17:37)
[2020-12-12] MEDS: ACETAMINOPHEN 325 MG TABLET (FP) PO PRN ×2 (06:22→19:03)
[2020-12-12] MEDS: LIDOCAINE 5% TOPICAL PATCH TP SCH (09:56)
[2020-12-12] MEDS: PRENATAL VITAMINS W/ FOLIC ACID TABLET (FP) PO SCH (09:56)
[2020-12-12] MEDS: diphenhydrAMINE HCL 25 MG CAPSULE (FP) PO PRN ×2 (09:57→21:26)
[2020-12-12] MEDS: CLOTRIMAZOLE 1% CREAM 15 GM TUBE TP SCH ×2 (09:57→21:27)
[2020-12-12] MEDS: BUDESONIDE/FORMETEROL FUMARATE 80/4.5 mcg INHALER IH SCH ×2 (09:57→21:27)
[2020-12-12] MEDS: MAG HYDROX/AL HYDROX/SIMETH 30 ML UNIT-DOSE CUP PO PRN (09:59)
[2020-12-12] MEDS: METHOCARBAMOL 500 MG TABLET PO PRN (17:37)
[2020-12-12] MEDS: THIAMINE HCL 100 MG TABLET (FP) PO SCH (21:26)
[2020-12-12] MEDS: LIDOCAINE PATCH REMOVAL MC SCH (21:26)
[2020-12-12] MEDS: MELATONIN 5 MG TABLETS PO SCH (21:26)
[2020-12-12] MEDS: IBUPROFEN 400 MG TABLET (FP) PO PRN (21:28)
[2020-12-13] MEDS: ACETAMINOPHEN 325 MG TABLET (FP) PO PRN ×2 (06:11→21:33)
[2020-12-13] MEDS: METHOCARBAMOL 500 MG TABLET PO PRN ×3 (06:11→22:36)
[2020-12-13] MEDS: FAMOTIDINE 20 MG TABLET PO SCH ×2 (07:50→16:36)
[2020-12-13] MEDS: BUDESONIDE/FORMETEROL FUMARATE 80/4.5 mcg INHALER IH SCH ×2 (09:20→21:33)
[2020-12-13] MEDS: CLOTRIMAZOLE 1% CREAM 15 GM TUBE TP SCH ×2 (09:21→21:33)
[2020-12-13] MEDS: PRENATAL VITAMINS W/ FOLIC ACID TABLET (FP) PO SCH (09:21)
[2020-12-13] MEDS: LIDOCAINE 5% TOPICAL PATCH TP SCH (09:22)
[2020-12-13] MEDS: diphenhydrAMINE HCL 25 MG CAPSULE (FP) PO PRN ×2 (14:20→21:36)
[2020-12-13] MEDS ORDERED: PT OWN MED DRAWER 7, Y5N ONE (20:13)
[2020-12-13] MEDS: MELATONIN 5 MG TABLETS PO SCH (21:32)
[2020-12-13] MEDS: LIDOCAINE PATCH REMOVAL MC SCH (21:33)
[2020-12-13] MEDS: THIAMINE HCL 100 MG TABLET (FP) PO SCH (21:33)
[2020-12-14] MEDS: FAMOTIDINE 20 MG TABLET PO SCH (06:11)
[2020-12-14] MEDS: METHOCARBAMOL 500 MG TABLET PO PRN (06:12)
[2020-12-14] MEDS: ACETAMINOPHEN 325 MG TABLET (FP) PO PRN ×2 (06:12→09:08)
[2020-12-14 07:47] VITALS: BP 119/77; PULSE 72; TEMP 97.1
[2020-12-14] MEDS: LIDOCAINE 5% TOPICAL PATCH TP SCH (09:08)
[2020-12-14] MEDS: PRENATAL VITAMINS W/ FOLIC ACID TABLET (FP) PO SCH (09:09)
[2020-12-14] MEDS: diphenhydrAMINE HCL 25 MG CAPSULE (FP) PO PRN (09:10)
[2020-12-14] MEDS: BUDESONIDE/FORMETEROL FUMARATE 80/4.5 mcg INHALER IH SCH (09:10)
[2020-12-14] MEDS: CLOTRIMAZOLE 1% CREAM 15 GM TUBE TP SCH (09:11)
== END 2020-12-14 09:25 | disposition other institution (70) | DRG 772 ==
LOC: YASAS 09:38 → Y5N 17:06
PROVIDERS: ADMIT Allergy & Immunology; ATTEND Allergy & Immunology
PROC: HZ42ZZZ Group Counseling for Substance Abuse Treatment, Cognitive-Behavioral (ICD-10-PCS; principal; 2020-11-30)
DX: F10.20 Alcohol dependence, uncomplicated (principal); F16.20 Hallucinogen dependence, uncomplicated; F12.20 Cannabis dependence, uncomplicated; F17.210 Nicotine dependence, cigarettes, uncomplicated; F31.81 Bipolar II disorder; F19.24 Other psychoactive substance dependence with psychoactive substance-induced mood disorder; F60.89 Other specific personality disorders; F39 Unspecified mood [affective] disorder; F41.9 Anxiety disorder, unspecified; J30.9 Allergic rhinitis, unspecified; K21.9 Gastro-esophageal reflux disease without esophagitis; M25.571 Pain in right ankle and joints of right foot; M54.5 Low back pain; G89.29 Other chronic pain; R68.84 Jaw pain; S09.93XA Unspecified injury of face, initial encounter; Y04.2XXA Assault by strike against or bumped into by another person, initial encounter; Y92.238 Other place in hospital as the place of occurrence of the external cause; Y93.89 Activity, other specified
CPT/HCPCS: 36415; 70100-TC-FY; 80053; 81003; 85027; 86780; 93005; 93010; C9803; U0003; U0005

== ENCOUNTER 2024-02-03 20:10 | Inpatient (IN) | payer OTHER ==
[2024-02-03 20:41] VITALS: BMI 31.6
[2024-02-03] MEDS ORDERED: BENZOCAINE/MENTHOL (CHLORASEPTIC ) LOZENGE MM PRN (21:08)
[2024-02-03] MEDS ORDERED: MAG HYDROX/AL HYDROX/SIMETH 30 ML UNIT-DOSE CUP PO PRN (21:08)
[2024-02-03] MEDS ORDERED: hydrOXYzine PAMOATE 25 MG CAPSULE (FP) PO PRN (21:08)
[2024-02-03] MEDS ORDERED: ACETAMINOPHEN 325 MG TABLET (FP) PO PRN (21:08)
[2024-02-03] MEDS ORDERED: guaiFENesin 600 MG TABLET.ER (FP) PO PRN (21:08)
[2024-02-03] MEDS ORDERED: IBUPROFEN 400 MG TABLET (FP) PO PRN (21:08)
[2024-02-03] MEDS ORDERED: POLYETHYLENE GLYCOL (HEALTHYLAX) 3350 17 GM PACKET PO PRN (21:08)
[2024-02-03] MEDS ORDERED: NICOTINE POLACRILEX 2 MG LOZENGE BC PRN (21:08)
[2024-02-03] MEDS ORDERED: IBUPROFEN 600 MG TABLET (FP) PO PRN (21:08)
[2024-02-03] MEDS ORDERED: NICOTINE POLACRILEX 2 MG GUM BUC PRN (21:08)
[2024-02-03] MEDS ORDERED: MAGNESIUM HYDROX 2400MG/30ML ORAL SUSPENSION 30 ML CUP PO PRN (21:08)
[2024-02-03] MEDS ORDERED: LOPERAMIDE HCL 2 MG CAPSULE PO PRN (21:08)
[2024-02-03] MEDS ORDERED: BENZONATATE 200 MG CAPSULE PO PRN (21:08)
[2024-02-03] MEDS ORDERED: amLODIPine BESYLATE 5 MG TABLET (FP) ONE ×2 (22:23→22:25)
[2024-02-03] MEDS ORDERED: MELATONIN 5 MG TABLETS ONE ×2 (22:23→22:26)
[2024-02-03] MEDS: amLODIPine BESYLATE 5 MG TABLET (FP) PO ONE (22:29)
[2024-02-03] MEDS: MELATONIN 5 MG TABLETS PO SCH (22:29)
[2024-02-03] MEDS: THIAMINE 100 MG TABLET PO SCH (22:29)
[2024-02-04] MEDS: PANTOPRAZOLE 20 MG TABLET PO SCH (06:34)
[2024-02-04] MEDS: BUDESONIDE/FORMETEROL FUMARATE 80/4.5 mcg INHALER IH SCH (10:10)
[2024-02-04] MEDS: PRENATAL VITAMINS W/ FOLIC ACID TABLET (FP) PO SCH (10:10)
[2024-02-04] MEDS: OLANZapine 5 MG TABLET PO SCH (10:54)
[2024-02-04] MEDS: diphenhydrAMINE HCL 50 MG CAPSULE PO PRN (11:20)
[2024-02-04] MEDS: TUBERCULIN PPD 5 TU/0.1ML SYRINGE (IN PATIENT USE ONLY) ID ONE (11:23)
[2024-02-04 11:32] LABS: URINE APPEARANCE CLEAR; URINE BILIRUBIN NEGATIVE (NEGATIVE); URINE COLOR YELLOW; URINE GLUCOSE (UA) NEGATIVE (NEGATIVE); URINE KETONE NEGATIVE (NEGATIVE); URINE LEUK ESTERASE NEGATIVE (NEGATIVE); URINE NITRITE NEGATIVE (NEGATIVE); URINE PROTEIN NEGATIVE (NEGATIVE); URINE UROBILINOGEN 0.2 mg/dL (0.2-1.0)
[2024-02-04] MEDS: ALBUTEROL SO4 HFA INHALER IH PRN (12:41)
[2024-02-04] MEDS ORDERED: diphenhydrAMINE HCL 25 MG CAPSULE (FP) PO ONE (17:28)
[2024-02-04] MEDS: valACYclovir HCL 500 MG TABLET (FP) PO SCH (21:22)
[2024-02-05] MEDS ORDERED: diphenhydrAMINE HCL 25 MG CAPSULE (FP) PO ONE (01:16)
[2024-02-05 07:16] VITALS: BP 141/77; PULSE 68; RESP 16; TEMP 97.6
== END 2024-02-05 08:40 | disposition left against medical advice (07) | DRG 770 ==
LOC: YASAS 20:10 → Y5N 22:33
PROVIDERS: ADMIT Allergy & Immunology; ATTEND Psychiatry & Neurology Pain Medicine
PROC: HZ42ZZZ Group Counseling for Substance Abuse Treatment, Cognitive-Behavioral (ICD-10-PCS; principal; 2024-02-03)
DX: F16.20 Hallucinogen dependence, uncomplicated (principal); F12.20 Cannabis dependence, uncomplicated; F17.210 Nicotine dependence, cigarettes, uncomplicated; F31.9 Bipolar disorder, unspecified; F39 Unspecified mood [affective] disorder; F60.89 Other specific personality disorders; I10 Essential (primary) hypertension; K21.9 Gastro-esophageal reflux disease without esophagitis; B00.9 Herpesviral infection, unspecified; F91.8 Other conduct disorders; Z91.199 Patient's noncompliance with other medical treatment and regimen due to unspecified reason; Z87.09 Personal history of other diseases of the respiratory system; Z59.02 Unsheltered homelessness
CPT/HCPCS: 81003; 93005; 93010

== ENCOUNTER 2024-05-14 11:56 | Emergency (ER) | payer OTHER ==
[2024-05-14 12:09] VITALS: BP 139/89; PULSE 84; RESP 16; TEMP 98.6; BMI 28.8
== END 2024-05-14 14:05 | disposition home or self-care (01) ==
LOC: FER 11:56
DX: L29.2 Pruritus vulvae (principal); N89.8 Other specified noninflammatory disorders of vagina
CPT/HCPCS: 81003; 84703; 87086; 99283-25